=== PATIENT | male | born 1985 | race Caucasian/White ===

== ENCOUNTER → 2017-05-09 13:36 | Emergency (ER) | payer OTHER ==
[~2017-05-09 13:36] MED LIST: Oseltamivir CAP* 75 MG CAP PO ONE
--- NOTE | 2017-05-09 14:43 | ED ---
Influenza-Like Illness - HPI Summary HPI Summary: 32-year-old male presents with a cough for the past day. He states his daughter was diagnosed with flu. 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 He denies any headache. He denies any muscle aches. Denies any fever. He hasn't taken anything for symptoms. He has no medical conditions. He denies any chest pain or shortness of breath. no Bowel pain. She denies any nausea or vomiting. - History of Current Complaint Chief Complaint: EDFluSymptoms Time Seen by Provider: 05/09/17 14:02 - Allergy/Home Medications Allergies/Adverse Reactions: Allergies Allergy/AdvReac Type Severity Reaction Status Date / Time acetaminophen [From Tylenol] Allergy Nausea Verified 05/09/17 14:15 ibuprofen Allergy Nausea Verified 05/09/17 14:15 metoclopramide [From Reglan] Allergy Nausea Verified 05/09/17 14:15 PMH/Surg Hx/FS Hx/Imm Hx Endocrine/Hematology History: Denies: Hx Diabetes Cardiovascular History: Denies: Hx Hypertension, Hx Pacemaker/ICD History: Denies: Hx Renal Disease Sensory History: Denies: Hx Hearing Aid Psychiatric History: Denies: Hx Panic Disorder - Surgical History Surgery Procedure, Year, and Place: PILANIDIAL CYST. Rt HAND - TENDON REPAIR Infectious Disease History: No Infectious Disease History: Denies: Traveled Outside the [place] in Last 30 Days - Family History Known Family History: Negative: Respiratory Disease - Social History Alcohol Use: None Substance Use Type: Reports: None Smoking Status (MU): Never Smoked Tobacco Review of Systems Negative: Fever Negative: Chest Pain Negative: Shortness Of Breath, Cough Negative: Abdominal Pain All Other Systems Reviewed And Are Negative: Yes Physical Exam Triage Information Reviewed: Yes Vital Signs On Initial Exam: Initial Vitals Temp Pulse Resp BP Pulse Ox 98 F 80 18 121/75 98 05/09/17 13:56 05/09/17 13:56 05/09/17 13:56 05/09/17 13:56 05/09/17 13:56 Vital Signs Reviewed: Yes Appearance: Positive: Well-Appearing Skin: Positive: Warm, Dry Head/Face: Positive: Normal Head/Face Inspection Eyes: Positive: Normal, EOMI, BRIAN, Conjunctiva Clear ENT: Positive: Normal ENT inspection, Pharynx normal, TMs normal Neck: Positive: Supple, Nontender, No Lymphadenopathy Respiratory/Lung Sounds: Positive: Clear to Auscultation, Breath Sounds Present Cardiovascular: Positive: Normal, RRR Abdomen Description: Positive: Nontender, Soft Bowel Sounds: Positive: Present Musculoskeletal: Positive: Normal Neurological: Positive: Normal Psychiatric: Positive: Normal Diagnostics - Vital Signs Vital Signs Temp Pulse Resp BP Pulse Ox 05/09/17 13:56 98 F 80 18 121/75 98 - Laboratory Lab Results: Lab Results 05/09/17 Range/Units 14:21 Influenza A (Rapid) Negative (Negative) Influenza B (Rapid) Positive H (Negative) Lab Statement: Any lab studies that have been ordered have been reviewed, and results considered in the medical decision making process. Flu Symptom Course/Dx - Course Course Of Treatment: 32-year-old male presents with a cough for the past day. He states his daughter was diagnosed with flu. 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 He denies any headache. He denies any muscle aches. Denies any fever. He hasn't taken anything for symptoms. He has no medical conditions. He denies any chest pain or shortness of breath. no Bowel pain. She denies any nausea or vomiting. Lungs clear to auscultation. Abdomen soft nontender. Pharynx normal. Flu B+. Will pull patient from work. Will start on Tamiflu. Patient understands and agrees plan. - Diagnoses Differential Diagnosis/HQI/PQRI: Positive: Influenza, RSV, Upper Respiratory Infection Provider Diagnoses: Influenza B Discharge - Discharge Plan Condition: Good Disposition: HOME Prescriptions: Ondansetron TAB* [Zofran 4 MG Tab*] 4 mg PO Q6H PRN #8 tab PRN Reason: Nausea Oseltamivir CAP* [Tamiflu CAP*] 75 mg PO BID #9 cap Patient Education Materials: Influenza (ED) Forms: *Work Release Referrals: Dharmesh Roldan MD [Primary Care Provider] - Additional Instructions: Take Tamiflu twice for 5 days first dose given in ED Take Tylenol and ibuprofen for muscle aches and fever every 6 hours Use Zofran every 6 hours for nausea as needed Saline rinse can be used multiple times a day for nasal congestion Use humidifier in room or place bowls of warm water around room for cough Try to drink fluids every hour and eat a small snack every 3 hours Follow up with primary within 5 days Return to ED if develop any new or worsening symptoms
[2017-05-09 15:09] VITALS: BP 114/77
== END | disposition home or self-care (01) ==
LOC: ED 13:36
DX: J11.1 Influenza due to unidentified influenza virus with other respiratory manifestations (principal); R05 Cough
CPT/HCPCS: 87502; 99282; A9270-GY

== ENCOUNTER 2017-05-28 02:58 | Emergency (ER) | payer OTHER ==
[2017-05-28] MEDS ORDERED: Ibuprofen TAB* 800 MG PO ONE (03:36)
[2017-05-28] MEDS ORDERED: oxyCODONE/Acetamin 5/325 MG* TAB PO ONE (03:36)
--- NOTE | 2017-05-28 04:44 | ED ---
Reynaldo Lujan Julia, scribed for Jake Mccarthy MD on 05/28/17 at 0335 . Upper Extremity Pain - HPI Summary HPI Summary: This patient is a 32 year old M BIBA to [facility] due to right wrist pain beginning two hours ago s/p fall at 19:30 05/27/17. Patient reports falling on outstretched hand while going up the stairs. The patient rates the pain 10/10 in severity. - History of Current Complaint Chief Complaint: EDExtremityUpper Stated Complaint: FALL, RIGHT HAND/WRIST INJURY Time Seen by Provider: 05/28/17 03:06 Hx Obtained From: Patient Mechanism Of Injury: Fall From A Standing Position Onset/Duration: Started Hours Ago - 2 Severity Initially: Mild Severity Currently: Severe Pain Location: Wrist - R Aggravating Factor(s): Movement - Allergies/Home Medications Allergies/Adverse Reactions: Allergies Allergy/AdvReac Type Severity Reaction Status Date / Time acetaminophen [From Tylenol] AdvReac Nausea Verified 05/28/17 03:05 ibuprofen AdvReac Nausea Verified 05/28/17 03:05 metoclopramide [From Reglan] AdvReac Nausea Verified 05/28/17 03:05 PMH/Surg Hx/FS Hx/Imm Hx Endocrine/Hematology History: Denies: Hx Diabetes Cardiovascular History: Denies: Hx Hypertension, Hx Pacemaker/ICD History: Denies: Hx Renal Disease Sensory History: Denies: Hx Hearing Aid Psychiatric History: Denies: Hx Panic Disorder - Surgical History Surgery Procedure, Year, and Place: PILANIDIAL CYST. Rt HAND - TENDON REPAIR Infectious Disease History: No Infectious Disease History: Denies: Traveled Outside the [place] in Last 30 Days - Family History Known Family History: Negative: Respiratory Disease - Social History Alcohol Use: None Substance Use Type: Reports: None Smoking Status (MU): Never Smoked Tobacco Review of Systems Negative: Fever Positive: Myalgia - R wrist pain All Other Systems Reviewed And Are Negative: Yes Physical Exam - Summary Physical Exam Summary: VITAL SIGNS: Reviewed. GENERAL: Patient is a well-developed and nourished male who is lying comfortable in the stretcher. Patient is not in any acute respiratory distress. HEAD AND FACE: No signs of trauma. No ecchymosis, hematomas or skull depressions. No sinus tenderness. EYES: PERRLA, EOMI x 2, No injected conjunctiva, no nystagmus. EARS: Hearing grossly intact. Ear canals and tympanic membranes are within normal limits. MOUTH: Oropharynx within normal limits. NECK: Supple, trachea is midline, no adenopathy, no JVD, no carotid bruit, no c- spine tenderness, neck with full ROM. CHEST: Symmetric, no tenderness at palpation LUNGS: Clear to auscultation bilaterally. No wheezing or crackles. CVS: Regular rate and rhythm, S1 and S2 present, no murmurs or gallops appreciated. ABDOMEN: Soft, non-tender. No signs of distention. No rebound no guarding, and no masses palpated. Bowel sounds are normal. EXTREMITIES:Tenderness to dorsal aspect of right wrist with decreased ROM due to pain, no edema, no cyanosis or clubbing. NEURO: Alert and oriented x 3. No acute neurological deficits. Speech is normal and follows commands. Distal right hand neurological function intact. SKIN: Dry and warm Triage Information Reviewed: Yes Vital Signs On Initial Exam: Initial Vitals Temp Pulse Resp BP Pulse Ox 98.5 F 90 16 134/89 98 05/28/17 03:01 05/28/17 03:01 05/28/17 03:01 05/28/17 03:01 05/28/17 03:01 Vital Signs Reviewed: Yes Diagnostics - Vital Signs Vital Signs Temp Pulse Resp BP Pulse Ox 05/28/17 03:01 98.5 F 90 16 134/89 98 - Laboratory Lab Statement: Any lab studies that have been ordered have been reviewed, and results considered in the medical decision making process. - Radiology R wrist XR Radiology Interpretation Completed By: ED Physician - No fracture of right wrist , arm, or hand. Course/Dx - Course Course Of Treatment: Patient presents with R wrist pain. Onset of pain is multiple hours after fall on outretched hand. An XR of his right wrist is negative for fracture. Patient is instructed to use ice. - Diagnoses Provider Diagnoses: Strain of right wrist Discharge - Discharge Plan Condition: Stable Disposition: HOME Patient Education Materials: Muscle Strain (ED) Referrals: Dharmesh Roldan MD [Primary Care Provider] - Additional Instructions: Follow up with an orthopedist for further evaluation. Use ice for pain relief. RETURN TO THE EMERGENCY DEPARTMENT FOR CHANGING OR WORSENING SYMPTOMS. The documentation as recorded by the Reynaldo macias Julia accurately reflects the service I personally performed and the decisions made by me, Jake Mccarthy MD.
[2017-05-28 05:06] VITALS: BP 142/80
--- NOTE | 2017-05-28 09:21 | RAD ---
Indication: Right wrist pain and injury 3 views of the wrist demonstrates no fracture. No other bone or joint abnormality is identified. IMPRESSION: NO FRACTURE OF THE WRIST IS NOTED.
--- NOTE | 2017-05-29 12:01 | RAD ---
Indication: Hand injury. 3 views of the right hand demonstrates deformity of the fifth metacarpal. No fracture is noted. No other bone or joint abnormality is noted. IMPRESSION: No fracture of the right hand is noted. Deformity of the fifth metacarpal from prior injury.
== END 2017-05-28 05:06 | disposition home or self-care (01) ==
LOC: ED 02:58
DX: S66.911A Strain of unspecified muscle, fascia and tendon at wrist and hand level, right hand, initial encounter (principal); M25.531 Pain in right wrist; W19.XXXA Unspecified fall, initial encounter; Y92.9 Unspecified place or not applicable
CPT/HCPCS: 99282; A9270-GY

== ENCOUNTER 2020-07-30 16:03 | Inpatient (IN) ==
[2020-07-30 16:42] LABS: ABS Eosinophils 0.1 10^3/ul (0-0.6); ABS Lymphocytes 2.5 10^3/ul (1.0-4.8); ABS Monocytes 0.8 10^3/ul (0-0.8); ABS Neutrophils 10.1 10^3/ul (1.5-7.7); Eosinophil % 0.8 %; Hematocrit 44 % (42-52); Hemoglobin 15.2 g/dL (14.0-18.0); Lymphocyte % 18.2 %; Mean Corpuscular HGB Conc 34 g/dL (31-36); Mean Corpuscular Hemoglobin 32 pg (27-31); Mean Corpuscular Volume 94 fL (80-94); Mean Platelet Volume 8.1 fL (7.4-10.4); Platelet Count 313 10^3/uL (150-450); Red Blood Count 4.72 10^6 /uL (4.18-5.48); Red Cell Distribution Width 14 % (10-15); White Blood Count 13.5 10^3/uL (3.5-10.8)
[2020-07-30 16:52] LABS: Urine Appearance Cloudy; Urine Bilirubin Negative (Negative); Urine Blood 3+ (Negative); Urine Color Yellow; Urine Glucose Negative (Negative); Urine Ketones 1+ (Negative); Urine Nitrite Negative (Negative); Urine Protein 1+(30 mg/dL) (Negative); Urine Specific Gravity 1.025 (1.002-1.030); Urine Urobilinogen Negative (Negative)
[2020-07-30 17:01] LABS: ALT 18 U/L (7-52); AST 16 U/L (13-39); Albumin 4.7 g/dL (3.2-5.2); Albumin/Globulin Ratio 1.5 (1-3); Alkaline Phosphatase 75 U/L (34-104); Anion Gap 10 mmol/L (2-11); Blood Urea Nitrogen 19 mg/dL (6-24); CO2 Carbon Dioxide 20 mmol/L (22-32); Calcium 9.8 mg/dL (8.6-10.3); Chloride 105 mmol/L (101-111); EGFR African American 119.2 (>60); EGFR Non-African American 98.6 (>60); Globulin 3.1 g/dL (2-4); Glucose 97 mg/dL (70-100); Potassium 3.8 mmol/L (3.5-5.0); Sodium 135 mmol/L (135-145); Total Protein 7.8 g/dL (6.4-8.9)
[2020-07-30 17:09] LABS: Urine Benzodiazepine Screen None Detected (None Detect); Urine Cannabinoids Screen Presumptive Positive (None Detect); Urine Opiates Screen None Detected (None Detect)
[2020-07-30 17:17] LABS: Urine Bacteria Absent (Absent); Urine Red Blood Cell 2+(6-10/hpf) (Absent); Urine Squamous Epithelial Cell Present (Absent); Urine White Blood Cell Trace(0-5/hpf) (Absent)
[2020-07-30 17:34] LABS: Acetaminophen < 15 mcg/mL; Alcohol, S < 10 mg/dL (<10); Salicylate < 2.50 mg/dL (<30)
[2020-07-30 17:49] LABS: TSH Ultra Thyroid Stim Horm 1.17 mcIU/mL (0.34-5.60)
[2020-07-30] MEDS ORDERED: Al Hydrox/Mg Hydrox/Simet LIQ 30 ML UDC PO PRN (18:18)
[2020-07-30] MEDS: Sulfamethox/Trimethoprim DS TAB 800/160 mg PO SCH (23:10)
[2020-07-31] MEDS: Sulfamethox/Trimethoprim DS TAB 800/160 mg PO SCH ×2 (09:20→21:50)
[2020-07-31] MEDS: Vitamin THERAPEUTIC TAB PO SCH (09:20)
[2020-07-31] MEDS ORDERED: Nicotine GUM 2MG FRUIT FLAVOR PO PRN (11:04)
[2020-07-31] MEDS: Nicotine PATCH 21 MG/24 HR PATCH TRANSDERM SCH (11:12)
[2020-08-01] MEDS: Vitamin THERAPEUTIC TAB PO SCH (09:29)
[2020-08-01] MEDS: Sulfamethox/Trimethoprim DS TAB 800/160 mg PO SCH ×2 (09:29→21:02)
[2020-08-01] MEDS: Nicotine PATCH 21 MG/24 HR PATCH TRANSDERM SCH (09:29)
[2020-08-02] MEDS: Sulfamethox/Trimethoprim DS TAB 800/160 mg PO SCH ×2 (13:12→20:16)
[2020-08-02] MEDS: Nicotine PATCH 21 MG/24 HR PATCH TRANSDERM SCH (13:12)
[2020-08-02] MEDS: Vitamin THERAPEUTIC TAB PO SCH (13:13)
[2020-08-03] MEDS: Nicotine PATCH 21 MG/24 HR PATCH TRANSDERM SCH (07:38)
[2020-08-03] MEDS: Vitamin THERAPEUTIC TAB PO SCH (07:38)
[2020-08-03] MEDS: Sulfamethox/Trimethoprim DS TAB 800/160 mg PO SCH ×2 (07:38→19:43)
[2020-08-03] MEDS: DULoxetine DR 30 mg CAP PO SCH (09:42)
[2020-08-04] MEDS: Nicotine PATCH 21 MG/24 HR PATCH TRANSDERM SCH (08:19)
[2020-08-04] MEDS: Sulfamethox/Trimethoprim DS TAB 800/160 mg PO SCH (08:19)
[2020-08-04] MEDS: Vitamin THERAPEUTIC TAB PO SCH (08:19)
[2020-08-04] MEDS: DULoxetine DR 30 mg CAP PO SCH (08:19)
[2020-08-04 08:33] VITALS: BP 124/72
[2020-08-05] MEDS ORDERED: DULoxetine DR 30 mg CAP PO SCH (09:00)
== END 2020-08-04 11:20 | disposition home or self-care (01) | DRG 751 ==
LOC: ED 16:03 → BSU 18:18 → ED 19:30 → BSU 08-01 16:26
PROVIDERS: ADMIT Psychiatry & Neurology Psychiatry; ATTEND Psychiatry & Neurology Psychiatry

== ENCOUNTER 2020-10-12 23:31 | Inpatient (IN) ==
[2020-10-13 00:24] LABS: ABS Basophils 0.1 10^3/ul (0-0.2); ABS Eosinophils 0.3 10^3/ul (0-0.6); ABS Monocytes 0.9 10^3/ul (0-0.8); ABS Neutrophils 9.6 10^3/ul (1.5-7.7); Eosinophil % 2.1 %; Hematocrit 47 % (42-52); Hemoglobin 15.8 g/dL (14.0-18.0); Lymphocyte % 21.4 %; Mean Corpuscular HGB Conc 34 g/dL (31-36); Mean Corpuscular Hemoglobin 32 pg (27-31); Mean Corpuscular Volume 94 fL (80-94); Mean Platelet Volume 8.5 fL (7.4-10.4); Nucleated Red Blood Cells % 0.1; Platelet Count 237 10^3/uL (150-450); Red Blood Count 4.99 10^6 /uL (4.18-5.48); Red Cell Distribution Width 13 % (10-15); White Blood Count 13.8 10^3/uL (3.5-10.8)
[2020-10-13 00:41] LABS: ALT 17 U/L (7-52); Albumin 4.3 g/dL (3.2-5.2); Albumin/Globulin Ratio 1.5 (1-3); Alkaline Phosphatase 64 U/L (35-149); Blood Urea Nitrogen 20 mg/dL (6-24); CO2 Carbon Dioxide 30 mmol/L (22-32); Calcium 9.6 mg/dL (8.6-10.3); Chloride 101 mmol/L (101-111); EGFR African American 117.7 (>60); EGFR Non-African American 97.3 (>60); Globulin 2.8 g/dL (2-4); Glucose 89 mg/dL (70-100); Sodium 136 mmol/L (135-145); Total Protein 7.1 g/dL (6.4-8.9)
[2020-10-13 00:57] LABS: Anion Gap 5 mmol/L (2-11); Potassium 4.1 mmol/L (3.5-5.0)
[2020-10-13 00:58] LABS: AST 14 U/L (13-39); Alcohol, S < 10 mg/dL (<10); Salicylate < 2.50 mg/dL (<30)
[2020-10-13 01:01] LABS: Acetaminophen < 15 mcg/mL
[2020-10-13 01:13] LABS: TSH Ultra Thyroid Stim Horm 0.89 mcIU/mL (0.34-5.60)
[2020-10-13] MEDS ORDERED: Al Hydrox/Mg Hydrox/Simet LIQ 30 ML UDC PO PRN (08:57)
[2020-10-13] MEDS ORDERED: Nicotine GUM 2MG FRUIT FLAVOR PO PRN (08:57)
[2020-10-13] MEDS: Nicotine PATCH 21 MG/24 HR PATCH TRANSDERM SCH (13:20)
[2020-10-13] MEDS: DULoxetine DR 60 mg CAP PO SCH (13:20)
[2020-10-14] MEDS: Nicotine PATCH 21 MG/24 HR PATCH TRANSDERM SCH (08:34)
[2020-10-14] MEDS: DULoxetine DR 60 mg CAP PO SCH (08:34)
[2020-10-14 08:53] LABS: HDL Cholesterol 38.7 mg/dL
[2020-10-14 10:19] VITALS: BP 117/78
[2020-10-14 12:27] LABS: Urine Appearance Clear; Urine Bilirubin Negative (Negative); Urine Blood 2+ (Negative); Urine Color Yellow; Urine Glucose Negative (Negative); Urine Ketones Negative (Negative); Urine Nitrite Negative (Negative); Urine Protein Negative (Negative); Urine Specific Gravity 1.019 (1.002-1.030); Urine Urobilinogen Negative (Negative)
[2020-10-14 12:39] LABS: Urine Bacteria Absent (Absent); Urine Red Blood Cell 2+(6-10/hpf) (Absent); Urine White Blood Cell Absent (Absent)
== END 2020-10-14 12:28 | disposition home or self-care (01) | DRG 753 ==
LOC: ED 23:31 → BSU 10-13 08:57
PROVIDERS: ADMIT Psychiatry & Neurology Psychiatry; ATTEND Psychiatry & Neurology Psychiatry

== ENCOUNTER 2020-11-03 16:16 | Inpatient (IN) ==
[2020-11-03 17:11] LABS: Urine Appearance Cloudy; Urine Bilirubin Negative (Negative); Urine Blood 1+ (Negative); Urine Color Yellow; Urine Glucose Negative (Negative); Urine Ketones Negative (Negative); Urine Nitrite Negative (Negative); Urine Protein Negative (Negative); Urine Specific Gravity 1.027 (1.002-1.030); Urine Urobilinogen Negative (Negative)
[2020-11-03 17:17] LABS: ABS Basophils 0.1 10^3/ul (0-0.2); ABS Eosinophils 0.2 10^3/ul (0-0.6); ABS Monocytes 0.8 10^3/ul (0-0.8); ABS Neutrophils 8.1 10^3/ul (1.5-7.7); Hematocrit 43 % (42-52); Hemoglobin 15.3 g/dL (14.0-18.0); Lymphocyte % 24.7 %; Mean Corpuscular HGB Conc 36 g/dL (31-36); Mean Corpuscular Hemoglobin 32 pg (27-31); Mean Corpuscular Volume 91 fL (80-94); Mean Platelet Volume 8.4 fL (7.4-10.4); Platelet Count 244 10^3/uL (150-450); Red Blood Count 4.72 10^6 /uL (4.18-5.48); Red Cell Distribution Width 13 % (10-15); White Blood Count 12.2 10^3/uL (3.5-10.8)
[2020-11-03 17:22] LABS: Urine Benzodiazepine Screen None Detected (None Detect); Urine Cannabinoids Screen Presumptive Positive (None Detect); Urine Opiates Screen None Detected (None Detect)
[2020-11-03 17:34] LABS: ALT 13 U/L (7-52); Albumin 4.4 g/dL (3.2-5.2); Albumin/Globulin Ratio 1.5 (1-3); Alkaline Phosphatase 59 U/L (35-149); Blood Urea Nitrogen 15 mg/dL (6-24); CO2 Carbon Dioxide 26 mmol/L (22-32); Calcium 9.2 mg/dL (8.6-10.3); Chloride 103 mmol/L (101-111); EGFR African American 119.2 (>60); EGFR Non-African American 98.6 (>60); Glucose 100 mg/dL (70-100); Sodium 135 mmol/L (135-145); Total Protein 7.4 g/dL (6.4-8.9)
[2020-11-03 17:48] LABS: Urine Bacteria Absent (Absent); Urine Red Blood Cell 2+(6-10/hpf) (Absent); Urine Squamous Epithelial Cell Present (Absent); Urine White Blood Cell Trace(0-5/hpf) (Absent)
[2020-11-03 18:02] LABS: Acetaminophen < 15 mcg/mL; Alcohol, S < 13 mg/dL (<13); Salicylate < 2.50 mg/dL (<30)
[2020-11-03 18:09] LABS: TSH Ultra Thyroid Stim Horm 0.54 mcIU/mL (0.34-5.60)
[2020-11-03 19:32] LABS: AST 15 U/L (13-39); Anion Gap 6 mmol/L (2-11)
[2020-11-04] MEDS ORDERED: Al Hydrox/Mg Hydrox/Simet LIQ 30 ML UDC PO PRN (00:12)
[2020-11-04 08:23] LABS: HDL Cholesterol 33.9 mg/dL
[2020-11-04] MEDS: Vitamin THERAPEUTIC TAB PO SCH (09:42)
[2020-11-05] MEDS: Vitamin THERAPEUTIC TAB PO SCH (09:01)
[2020-11-05] MEDS: DULoxetine DR 60 mg CAP PO SCH (09:01)
[2020-11-06] MEDS: Vitamin THERAPEUTIC TAB PO SCH (07:26)
[2020-11-06] MEDS: DULoxetine DR 60 mg CAP PO SCH (07:26)
[2020-11-07 07:30] VITALS: BP 131/93
[2020-11-07] MEDS: DULoxetine DR 60 mg CAP PO SCH (08:20)
[2020-11-07] MEDS: Vitamin THERAPEUTIC TAB PO SCH (08:20)
== END 2020-11-07 12:19 | disposition home or self-care (01) | DRG 754 ==
LOC: ED 16:16 → BSU 23:47
PROVIDERS: ADMIT Psychiatry & Neurology Psychiatry; ATTEND Psychiatry & Neurology Psychiatry

== ENCOUNTER 2020-12-03 21:27 | Inpatient (IN) ==
[2020-12-03] MEDS ORDERED: Tetan/Diph/Pertus SYR(Tdap) 0.5 ML SYR(BOOSTRIX) use SYR contains LATEX IM ONE (21:59)
[2020-12-03 22:20] LABS: ABS Basophils 0.1 10^3/ul (0-0.2); ABS Eosinophils 0.2 10^3/ul (0-0.6); ABS Lymphocytes 3.4 10^3/ul (1.0-4.8); ABS Monocytes 0.7 10^3/ul (0-0.8); ABS Neutrophils 6.9 10^3/ul (1.5-7.7); Eosinophil % 1.5 %; Hematocrit 44 % (42-52); Hemoglobin 15.6 g/dL (14.0-18.0); Lymphocyte % 30.3 %; Mean Corpuscular HGB Conc 35 g/dL (31-36); Mean Corpuscular Hemoglobin 32 pg (27-31); Mean Corpuscular Volume 91 fL (80-94); Mean Platelet Volume 8.7 fL (7.4-10.4); Platelet Count 247 10^3/uL (150-450); Red Blood Count 4.87 10^6 /uL (4.18-5.48); Red Cell Distribution Width 13 % (10-15); White Blood Count 11.2 10^3/uL (3.5-10.8)
[2020-12-03 22:23] LABS: Urine Appearance Clear; Urine Bilirubin Negative (Negative); Urine Blood 2+ (Negative); Urine Color Amber; Urine Glucose Negative (Negative); Urine Ketones 1+ (Negative); Urine Nitrite Negative (Negative); Urine Protein 1+(30 mg/dL) (Negative); Urine Urobilinogen Negative (Negative)
[2020-12-03 22:30] LABS: Urine Bacteria Absent (Absent); Urine Red Blood Cell 2+(6-10/hpf) (Absent); Urine Squamous Epithelial Cell Present (Absent); Urine White Blood Cell Trace(0-5/hpf) (Absent)
[2020-12-03 22:35] LABS: ALT 12 U/L (7-52); AST 15 U/L (13-39); Albumin 4.4 g/dL (3.2-5.2); Albumin/Globulin Ratio 1.4 (1-3); Alkaline Phosphatase 54 U/L (35-149); Anion Gap 9 mmol/L (2-11); Blood Urea Nitrogen 17 mg/dL (6-24); CO2 Carbon Dioxide 25 mmol/L (22-32); Calcium 9.2 mg/dL (8.6-10.3); Chloride 103 mmol/L (101-111); EGFR African American 114.7 (>60); EGFR Non-African American 94.8 (>60); Globulin 3.1 g/dL (2-4); Glucose 94 mg/dL (70-100); Potassium 3.8 mmol/L (3.5-5.0); Sodium 137 mmol/L (135-145); Total Protein 7.5 g/dL (6.4-8.9)
[2020-12-03 22:36] LABS: Alcohol, S < 13 mg/dL (<13); Salicylate < 2.50 mg/dL (<30)
[2020-12-03 22:39] LABS: Urine Benzodiazepine Screen None Detected (None Detect); Urine Cannabinoids Screen Presumptive Positive (None Detect); Urine Opiates Screen None Detected (None Detect)
[2020-12-03 22:43] LABS: Acetaminophen < 15 mcg/mL
[2020-12-04 11:18] LABS: Rapid COVID-19 Molecular Undetected (Undetected)
[2020-12-04] MEDS ORDERED: Al Hydrox/Mg Hydrox/Simet LIQ 30 ML UDC PO PRN (20:41)
[2020-12-05] MEDS: Vitamin THERAPEUTIC TAB PO SCH (07:42)
[2020-12-05 08:09] LABS: HDL Cholesterol 34.3 mg/dL
[2020-12-05] MEDS ORDERED: Flu vaccine *QUAD* 2021-22* 0.5 ML SYRINGE IM ONE (09:00)
[2020-12-06] MEDS: Vitamin THERAPEUTIC TAB PO SCH (07:45)
[2020-12-07] MEDS: Vitamin THERAPEUTIC TAB PO SCH (07:48)
[2020-12-08] MEDS: Vitamin THERAPEUTIC TAB PO SCH (07:35)
[2020-12-08 08:53] VITALS: BP 128/87
== END 2020-12-08 09:20 | disposition home or self-care (01) | DRG 751 ==
LOC: ED 21:27 → BSU 12-04 12:05
PROVIDERS: ADMIT Psychiatry & Neurology Psychiatry; ATTEND Psychiatry & Neurology Psychiatry